=== PATIENT | male | born 1980 | race Hispanic/Latino ===

== ENCOUNTER → 2018-01-27 | Day surgery (SDC) | payer BC ==
[~2018-01-27] MED LIST: ANASTROZOLE1 MG PO; ATORVASTATIN CA20 MG PO; FENTANYL CITRATE/PF 100MCG/2 ML INJ ONE; METOPROLOL TART50 MG PO; MIDAZOLAM HCL 2 MG/2 ML VIAL ONE; TESTOSTERO100 MG/1 M IM
--- NOTE | 2018-01-27 10:17 | Operative Report ---
DATE OF PROCEDURE: January 27, 2018 PROCEDURE PERFORMED: Esophagogastroduodenoscopy with biopsies and a colonoscopy with polypectomy and biopsies. INDICATIONS FOR EGD: Heartburn, indigestion. INDICATIONS FOR COLONOSCOPY: Rectal bleeding. REFERRING PHYSICIAN: Dr. Bing Domínguez MEDICATION: Patient was done under MAC. Please see anesthesiologist note. PROCEDURE IN DETAIL: With the patient in left lateral decubitus position, flexible fiberoptic Olympus gastroscope was introduced into the esophagus under direct visualization without any difficulty. There was some patchy erythema noted in distal esophagus. The scope was then advanced with ease into the stomach and mucosa overlying the antrum and the body revealed some patchy erythema and low-grade to moderate edema, and biopsies were obtained and sent to stain for H. pylori. Pylorus appeared to be of normal contour and shape. It was intubated with ease, and the scope was advanced all the way to the second portion of the duodenum. The scope was then withdrawn slowly. Mucosa overlying the proximal second portion and the duodenal bulb appeared to be within normal limits. The scope was then withdrawn back into the stomach and retroflexed. Mucosa overlying the fundus and the cardia appeared to be within normal limits. The scope was then straightened out. The stomach was decompressed. The scope was subsequently withdrawn. Patient tolerated the procedure well. IMPRESSION: 1. Distal esophagitis, mild. 2. Gastritis, biopsied. Biopsy sent to stain for Helicobacter pylori. PLAN: Follow up histology. Initiate Protonix 40 mg 1 p.o. q.a.m. a.c. Patient was then turned around, and after adequate lubrication of the anal canal, flexible fiberoptic Olympus colonoscope was inserted into the rectum with ease and advanced all the way to the cecum. The scope was then withdrawn slowly. Mucosa overlying the cecum appeared to be within normal limits. A single diverticulum was noted in the cecum. The ileocecal valve was intubated and the scope was advanced into the terminal ileum. Biopsies were obtained. The scope was then withdrawn back into the colon. It was then withdrawn slowly and few scattered diverticula were noted throughout the colon. One polyp was snared, 1 polyp was hot biopsied from the descending colon. There was an ulcerated 10 cm segment in the the proximal sigmoid colon, and biopsies were obtained. The rest of the sigmoid revealed some patchy minimal inflammatory changes. An approximately 8-mm polyp was noted in the distal rectum and that was removed per snare electrocautery, and polypectomy site was hemoclipped. The scope was then retroflexed into the distal rectum and small internal hemorrhoids were noted, none of which was actively bleeding. The scope was then straightened out. It was subsequently withdrawn. Patient tolerated the procedure well. IMPRESSION: 1. Diverticulosis. 2. Descending colon polyps x2, 1 snared and 1 hot biopsied. 3. Segmental colitis, proximal sigmoid colon, biopsies obtained. 4. Rectal polyp snared and polypectomy site hemoclipped. 5. Internal hemorrhoids, none actively bleeding. PLAN: Follow up histology. Follow up stool studies. Check IBD panel, CRP, and sed rate. Start Apriso 0.375 four p.o. every day. Patient might benefit from a followup colonoscopy in 3 years. Job#: [id number] cc:DR. BING DOMÍNGUEZ
[2018-01-27 10:50] LABS: WBC,FECAL (FECAL LACTOFERRIN) NEGATIVE (NEGATIVE)
[2018-01-28 10:09] LABS: C DIFFICILE TOXIN A&B AMP PROB NEGATIVE (NEGATIVE)
== END | disposition home or self-care (01) ==
LOC: OR 05:43
PROVIDERS: ATTEND Internal Medicine Gastroenterology
DX: K29.70 Gastritis, unspecified, without bleeding (principal); R12 Heartburn; K92.1 Melena; K44.9 Diaphragmatic hernia without obstruction or gangrene; Z87.19 Personal history of other diseases of the digestive system; K64.8 Other hemorrhoids; I10 Essential (primary) hypertension; K20.9 Esophagitis, unspecified; K57.30 Diverticulosis of large intestine without perforation or abscess without bleeding; K63.5 Polyp of colon; K50.10 Crohn's disease of large intestine without complications; K62.1 Rectal polyp; Z01.810 Encounter for preprocedural cardiovascular examination; Z01.812 Encounter for preprocedural laboratory examination
CPT/HCPCS: 43239; 45384; 83630; 83993; 87045; 87177; 87328; 87493; 93005; J2250; 45378; 45380; 45385